=== PATIENT | female | born 1990 | race Caucasian/White ===

== ENCOUNTER → 2022-03-13 14:16 | Outpatient (BNVA) | payer OTHER, BC, SELFPAY | PROVIDERS: PCP Emergency Medicine Emergency Medical Services; Visit Provider Nurse Practitioner Family | DX: G44.85 Primary stabbing headache (principal); G43.109 Migraine with aura, not intractable, without status migrainosus; G47.19 Other hypersomnia; R06.83 Snoring; G47.9 Sleep disorder, unspecified; F32.A Depression, unspecified; Z86.69 Personal history of other diseases of the nervous system and sense organs | CPT/HCPCS: 99202 ==

== ENCOUNTER → 2022-03-29 08:56 | Outpatient (REF) | payer BC, OTHER, SELFPAY | LOC: HO.SL 08:56 | PROVIDERS: Visit Provider Nurse Practitioner Family | DX: G47.19 Other hypersomnia (principal); G47.9 Sleep disorder, unspecified; R06.83 Snoring | CPT/HCPCS: 95806 ==

== ENCOUNTER → 2022-08-11 14:27 | Outpatient (BNVA) | payer BC, OTHER, SELFPAY | PROVIDERS: PCP Emergency Medicine Emergency Medical Services; Visit Provider Nurse Practitioner Family ==

== ENCOUNTER 2023-05-14 15:43 | Outpatient (AMB) | payer BC, SELFPAY ==
[2023-05-14 15:47] VITALS: PULSE 81; O2SAT 96; BMI 32.9
--- NOTE | 2023-05-14 15:47 | A.OFFVIS_ITS ---
Intake Vital Signs 05/14/23 15:47 Height 5 ft 1 in Weight 174 lb BMI 32.9 Pulse 81 Pulse Source Pulse Oximeter Pulse Oximetry (%) 96 Oxygen Delivery Method Room Air Intake Visit Reasons: 6 mo f/u for headaches-LVM Intake Note: Patient presents for 6 month follow up. no issues or concerns Allergies Seasonal Allergies Allergy (Mild, Verified 05/14/23 15:50) Runny Nose Medication List - Last Reconciled 05/14/23 by ANDRE Veloz albuterol sulfate 90 mcg/actuation 2 puffs inhalation Q4-6H PRN ayccfiiwzm-afmpidgdntsjg-txne 50-325-40 mg 1 cap PO Q4H PRN magnesium oxide 400 mg PO BEDTIME 30 days riboflavin (vitamin B2) 400 mg PO DAILY 30 days sumatriptan succinate 50 - 100 mg orally at onset of headache, may repeat in 2 hrs PRN; max 2 tabs per day or 4 tabs/week (may take with Ibuprofen) 30 days HPI HPI Comments History of Present Illness Details 33-yr-old female presents for f/u visit. Pt denies any significant interval medical changes. Pt has not been having many migraine attacks- last migraine was a dull migraine in her eyes which lasted 3 days. Does have increased migraines that start on the 1st day of her menses. This is a/w increased nausea. She does have regular headaches as well. No recent stabbing HAs. She stopped Riboflavn. Using Mag prn. Not using Sumatriptan often. [facility] Medical History Asthma GERD (gastroesophageal reflux disease) Surgical History History of brain surgery Hx of tonsillectomy Family History Mother Hypercholesteremia Rheumatoid arthritis Diabetes Pseudotumor cerebri Asthma Maternal Grandmother Myocardial infarction Maternal Grandfather Myocardial infarction Paternal Grandmother Myocardial infarction Sister Pseudotumor cerebri Brother Asthma Social History Alcohol intake: current Alcohol intake frequency: a few times a month Alcohol type: wine Patient Tobacco Use Status: Never used Tobacco Review of Systems Const All systems reviewed & are unremarkable except as noted in HPI and below Physical Exam Vital Signs: Last Vital Signs Pulse 81 05/14/23 15:47 Pulse Ox 96 05/14/23 15:47 Oxygen Delivery Method Room Air 05/14/23 15:47 BMI result Body Mass Index 32.9 Const General: cooperative and no acute distress Orientation/consciousness: patient oriented x3 HEENT Head: Yes normocephalic Resp Effort & Inspection: normal respiratory effort and able to speak in complete sentences Neuro General: patient oriented x3, gait normal and CN's II-XI intact bilaterally Cognition (Neuro): normal cognition Motor exam (neuro): 5/5 motor strength present throughout Psych Appearance: grossly normal Mental Status: mental status grossly normal Speech and movement: Normal speech and movement present Affect: normal affect Attitude: cooperative Thought process: Normal thought process present Thought content: Normal thought content present Insight: Good insight present (Psych) Judgement: Good judgement present (Psych) Assessment & Plan Assessment & Plan (1) Migraine aura without headache: Code(s): G43.109 - Migraine with aura, not intractable, without status migrainosus (2) Migraine with aura: Code(s): G43.109 - Migraine with aura, not intractable, without status migrainosus (3) Menstrual migraine: Code(s): G43.829 - Menstrual migraine, not intractable, without status migrainosus Plan For overall headache management: Strive to maintain good self-care, including but not limited to maintaining a healthy diet, adequate fluid intake, adequate sleep, and engaging in regular physical activity. Track headaches. ? For acute headache treatment: Continue Sumatriptan 100mg tab- 1/2-1 tab at onset of migraine, may repeat in 2 hrs, may take w/ Ibuprofen or Naproxen. Previous acute migraine medication trials: Fioricet not fully effective Acute migraine medication contraindications: None at this time For menstrual migraine: Start Ibuprofen or Naproxn bid 1-2 days prior to onset of menses, may take Sumatriptan the night before 1st day of expected menses. Zofran 4mg ODT prn ? For headache prevention medication: Discussed that preventative medications should be taken routinely as prescribed for best effect, it may take several weeks for full effect to take effect. May hold Riboflavin 400mg qam Continue Magnesium 400mg qhs prn, increase to qhs if headcahe burden increases. Hold Amitriptyline 10-20mg qhs- not tolerated. Previous migraine prevention medication trials: Amitriptyline 10-20mg qhs- not tolerated. Migraine prevention medication contraindications: BBs d/t dx of asthma. ? f/u in 6 months or sooner prn new/worsening s/s Medications: New ondansetron 4 mg PO Q6H PRN 30 tabs 3RF nausea and vomiting 30 days Refilled sumatriptan succinate 50 - 100 mg orally at onset of headache, may repeat in 2 hrs PRN; max 2 tabs per day or 4 tabs/week (may take with Ibuprofen) 12 tabs 6RF migraine headache 30 days magnesium oxide may hold for loose stools 400 mg PO BEDTIME 30 tabs 6RF 30 days Coding Level of Care Code Est Pt Level 4 (77242) Diagnoses Migraine aura without headache G43.109 Migraine with aura G43.109 Menstrual migraine G43.829
== END 2023-05-14 16:10 | disposition home or self-care (01) ==
PROVIDERS: PCP Emergency Medicine Emergency Medical Services; Visit Provider Nurse Practitioner Family
DX: G43.109 Migraine with aura, not intractable, without status migrainosus (principal); G43.829 Menstrual migraine, not intractable, without status migrainosus
CPT/HCPCS: 99214

== ENCOUNTER → 2023-05-14 15:43 | Outpatient (BNVA) | payer BC, OTHER, SELFPAY | PROVIDERS: PCP Emergency Medicine Emergency Medical Services; Visit Provider Nurse Practitioner Family ==

== ENCOUNTER 2024-06-19 15:22 | Outpatient (AMB) | payer OTHER, SELFPAY ==
[2024-06-19 15:39] VITALS: BP 120/74; PULSE 77; O2SAT 99; BMI 30.7
--- NOTE | 2024-06-19 15:39 | A.OFFVIS_ITS ---
Vital Signs 06/19/24 15:39 Height 5 ft 2 in Weight 168 lb BMI 30.7 BP 120/74 Blood Pressure Location Lt brachial Position Sitting Pulse 77 Pulse Source Pulse Oximeter Pulse Oximetry (%) 99 Oxygen Delivery Method Room Air Intake Visit Reasons: 6 mo f/u Intake Note: Patient presents 6 month follow up Headaches. [employer] Concentration Required: No Accompanied by: Self / Same As Patient Allergies Seasonal Allergies Allergy (Mild, Verified 06/19/24 15:40) Runny Nose HPI Comments Details: 34-yr-old female presents for f/u visit of migraine with aura, menstrual migraine. Pt denies any significant interval medical changes. Pt reports she is primarily only having migraine attacks associated with her menstrual menstrual cycle. The migraine tends to start a day or 2 before her menstrual cycle, and is associated with aura and nausea. Occasionally she may have migraine visual aura without headache. Has random daily less severe very brief stabbing/zapping-type head pains which can reoccur over 15 minutes. Not sure, but feels like this may have been daily. She using Riboflavn prn. Using Mag prn. She would like to start using her supplements more regularly. Not using Sumatriptan often. Does have a migraine cooling cap, which he finds helpful. Baseline migraine with aura characteristics: Aura: Seeing flashes of light or weighs or visual distortion. Numbness in tingling usually in hands but has been in feet or even left jaw if more severe Headache characteristics: Severe, Bilateral eye throbbing pain, often left sided. Associated symptoms: Photophobia, phonophobia, osmophobia, anorexia, N/V, slurred speech, red eyes, brain fog, dizziness described as orthostatic lightheadedness- feels like tunnel vision, activity intolerance, allodynia. Postdrome: Fatigue, hangover effect. [facility] Medical History Asthma GERD (gastroesophageal reflux disease) Surgical History History of brain surgery Hx of tonsillectomy Family History Mother Hypercholesteremia Rheumatoid arthritis Diabetes Pseudotumor cerebri Asthma Maternal Grandmother Myocardial infarction Maternal Grandfather Myocardial infarction Paternal Grandmother Myocardial infarction Sister Pseudotumor cerebri Brother Asthma Social History Alcohol intake: current Alcohol intake frequency: a few times a month Alcohol type: wine Patient Tobacco Use Status: Never used Tobacco Physical Exam Vital Signs: Last Vital Signs Pulse 77 06/19/24 15:39 BP 120/74 06/19/24 15:39 Pulse Ox 99 06/19/24 15:39 Oxygen Delivery Method Room Air 06/19/24 15:39 BMI result Body Mass Index 30.7 Const General: cooperative and no acute distress Orientation/consciousness: patient oriented x3 HEENT Head: Yes normocephalic Resp Effort & Inspection: normal respiratory effort and able to speak in complete sentences Neuro General: patient oriented x3, gait normal and CN's II-XI intact bilaterally Cognition (Neuro): normal cognition Motor exam (neuro): 5/5 motor strength present throughout Psych Appearance: grossly normal Mental Status: mental status grossly normal Speech and movement: Normal speech and movement present Affect: normal affect Attitude: cooperative Thought process: Normal thought process present Thought content: Normal thought content present Insight: Good insight present (Psych) Judgement: Good judgement present (Psych) Assessment & Plan Assessment & Plan (1) Migraine aura without headache: Code(s): G43.109 - Migraine with aura, not intractable, without status migrainosus Category: Medical (2) Migraine with aura: Code(s): G43.109 - Migraine with aura, not intractable, without status migrainosus Category: Medical (3) Menstrual migraine: Code(s): G43.829 - Menstrual migraine, not intractable, without status migrainosus Category: Medical (4) Stabbing headache: Comment: Holocranial ice-pick stabbing headache, brief, repeated attacks over 20 minutes, occurs almost daily. Code(s): G44.85 - Primary stabbing headache Category: Medical Plan For overall headache management: Strive to maintain good self-care, including but not limited to maintaining a healthy diet, adequate fluid intake, adequate sleep, and engaging in regular physical activity. Continue GreenLight therapy as needed. Information shared on neuromodulation devices such as cephaly or head a term- eTNS devices. Track headaches. For stabbing headache: Continue to monitor. If worsens, could consider trial of melatonin or indomethacin. ? For acute headache treatment: Migraine cooling cap as needed. Continue Sumatriptan 100mg tab- 1/2-1 tab at onset of migraine, may repeat in 2 hrs, may take w/ Ibuprofen or Naproxen. Previous acute migraine medication trials: Fioricet not fully effective Acute migraine medication contraindications: None at this time For menstrual migraine: Trial taking 1 cup of edemame a day x's 7 days-starting at onset of menstrual migraine. Start Ibuprofen or Naproxn bid 1-2 days prior to onset of menses, may take Sumatriptan the night before 1st day of expected menses. Zofran 4mg ODT prn ? For headache prevention medication: Resume daily use of Riboflavin 400mg qam Resume nightly use of Magnesium 400mg qhs prn Previous migraine prevention medication trials: Amitriptyline 10-20mg qhs- not tolerated. Migraine prevention medication contraindications: BBs d/t dx of asthma. ? f/u in 6 months or sooner prn new/worsening s/s Medications: Changed From magnesium oxide may hold for loose stools 400 mg PO BEDTIME 30 days 30 tabs 6RF To magnesium oxide may hold for loose stools 400 mg PO BEDTIME 90 days 90 tabs 3RF From riboflavin (vitamin B2) 400 mg PO DAILY 30 days 30 tabs 6RF To riboflavin (vitamin B2) 400 mg PO DAILY 90 days 90 tabs 3RF Refilled sumatriptan succinate (0.5 - 1 x 100 mg) 50 - 100 mg orally at onset of headache, may repeat in 2 hrs PRN; max 2 tabs per day or 4 tabs/week (may take with Ibuprofen) 30 days 12 tabs 6RF migraine headache ondansetron 4 mg PO Q6H 30 days PRN 30 tabs 6RF nausea and vomiting Scribe Plan - Not visible on output: Reviewed possible medication side effects, including but not limited to d rowsiness, dizziness. Coding Level of Care Code Est Pt Level 4 (85862) Diagnoses Migraine aura without headache G43.109 Migraine with aura G43.109 Menstrual migraine G43.829 Stabbing headache G44.85
--- OUTSIDE RECORDS SUMMARY | 2024-06-19 18:03 | XMS_ITS | Clinical Summary ---
Author Organization Patient Business Ser [facility] Address [address] [place] [address] Care Team Providers Care Pharmacovigilance Scientist Name Role Phone Shaneka Jeffrey MD Primary Care Pr ovider Allergies Active Allergy Reactions Criticality Noted Date Comments Other 08/08/2021 Seasonal Allergies Watery eye's , runny nose Medications budesonide (PULMICORT) 90 mcg/actuation inhalerIndication s:Mild intermittent asthma without complication Inhale 1 puff by mouth 2 (two) times a day. Rinse mouth with water after use to reduce aftertaste and incidence of candidiasis. Do not swallow. 1 each 1 5 Active omeprazole (PriLOSEC) [address] capsuleIndication s:Gastroesophagea l reflux disease without esophagitis Take 1 capsule (20 mg total) by mouth 1 (one) time each day. Do not crush or chew. 90 each 1 5 10/05/19 25 Active albuterol HFA (PROAIR HFA ; PROVENTIL HFA ; VENTOLIN HFA) 90 mcg/actuation inhalerIndication s:Mild intermittent asthma without complication Inhale 1 puff by mouth every 6 (six) hours if needed for wheezing. 18 g 1 5 Active Active Problems Problem Noted Date Diagnosed Date Mixed hyperlipidemia 04/07/2024 Assessment & Plan (04/07/2024 4:55 PM EST): She has a history of elevated LDL. Will update labs Orders: Lipid panel with reflex to direct LDL; Future Hemoglobin A1c; Future Gastroesophageal reflux disease 04/02/2023 Assessment & Plan (04/07/2024 4:55 PM EST): She is having symptoms. Advised to start using the omeprazole Orders: omeprazole (PriLOSEC) [address] capsule; Take 1 capsule (20 mg total) by mouth 1 (one) time each day. Do not crush or chew. Lactose intolerance 04/02/2023 Chiari I malformation ([facility] V24, [facility] V28) 06/07/2020 Assessment & Plan (04/07/2024 4:55 PM EST): Continue follow-up with [facility]. Has upcoming appointment. Obesity (BMI 30.0-34.9) 09/02/2018 Assessment & Plan (04/07/2024 4:55 PM EST): She will continue with weight loss efforts. See HPI. Will update labs Orders: CBC and differential; Future Comprehensive metabolic panel; Future Lipid panel with reflex to direct LDL; Future Hemoglobin A1c; Future Mild intermittent asthma 04/03/2018 Overview (12/18/2023): Childhood, with flares occ as adult Assessment & Plan (04/07/2024 4:55 PM EST): Well-controlled off the medications. Refills are provided for her to initiate medications as needed Orders: budesonide (PULMICORT) 90 mcg/actuation inhaler; Inhale 1 puff by mouth 2 (two) times a day. Rinse mouth with water after use to reduce aftertaste and incidence of candidiasis. Do not swallow. albuterol HFA (PROAIR HFA ; PROVENTIL HFA ; VENTOLIN HFA) 90 mcg/actuation inhaler; Inhale 1 puff by mouth every 6 (six) hours if needed for wheezing. Anxiety and depression 10/04/2011 Assessment & Plan (04/07/2024 4:55 PM EST): Well-controlled. Insomnia 10/04/2011 Resolved Problems Problem Noted Date Diagnosed Date Resolved Date Generalized anxiety disorder with panic attacks 04/02/2023 04/07/2024 Encounters Date Type Department Care Team Description 04/07/2024 3:30 PM EST Office Visit Adult Medicine [address] [phone] Shaneka Jeffrey MD Annual physical exam (Primary Dx); Anxiety and depression; Gastroesophageal reflux disease without esophagitis; Chiari I malformation (CMS/HCC V24, CMS/HCC V28); Mild intermittent asthma without complication; Obesity (BMI 30.0-34.9); Elevated LDL cholesterol level 03/25/2024 9:41 AM EST - 03/25/2024 11:59 PM EST Hospital Encounter Radiology [address] [phone] Breast lump Discharge Disposition: Home or Self Care 03/25/2024 9:41 AM EST - 03/25/2024 11:59 PM EST Hospital Encounter Radiology [facility] - [address] [phone] Mass of upper outer quadrant of left breast Discharge Disposition: Home or Self Care from Last 3 Months Immunizations Name Administration Dates Next Due DTaP (Infanrix) 6wks to less than 7yo ,01/03/1993,06/07/1992,04/01,1989 [id number] (Pentacel) 2mo to less than 5yo 06/07/1992 H1N1 Inj Preservative Free 05/24/2009 HPV, Quadrivalent 10/08/2007 Hepatitis B (Vkghjfj-P-Arboy , Recombivax HB-Adult) 19yo and older 11/19/1998,08/24/1997,07/24/1997 IPV Inactivated polio (Ipol) 6wks and older 11/08/1994,06/07/1992,06/04/1990,05/29 Influenza Quadravalent, MDCK , 0.5ml, preservative free (Flucelvax) 6mo and older 03/09/2020 Influenza Quadravalent, MDCK , 0.5ml, with preservative (Flucelvax) 6mo and older 02/05/2017 Influenza trivalent, 0.5mL, preservative free (Fluarix; FluLaval; Fluzone) ages 6mo and older (Afluria) 3 years and older 12/10/2012,12/23/2009,02/12/2001 MMR, measles mumps and rubel la Live (Priorix; M-M-R II) 12mo and older 09/07/1994,06/07/1992 PPD Test 10/04/2011 CarWoo! SARS-CoV-2 COVID-19, mRNA, LNP-S, preservative free 06/06/2020,05/16/2020 Pneumococcal polysaccharide 23 valent (Pneumovax 23) 2yo and older 03/09/2020 Td Tetanus diptheria (Tdvax) 7yo and older 02/12/2001 Tdap Tetanus diptheria acell ular pertussis (Boostrix; Adacel) 7yo and older 04/02/2023,09/10/2012,11/04/2008 Varicella live (Varivax) 12m o and older 07/24/1997 Surgical History Surgery Date Site/Laterality Comments TONSILLECTOMY 02/03/2008 PROCEDURE: HISTORICAL TONSILLECTOMY SECTION PROCEDURE: [place] DELIVERY ONLY OTHER SURGICAL HISTORY 11/2019 PROCEDURE: ELECTIVE SURGERY; COMMENT: for chiari malformation Medical History Medical History Date Comments Depression DX:Depression Mild intermittent asthma 04/03/2018 DX:Mild intermittent asthma; COMMENT: Childhood Obesity (BMI 30.0-34.9) 09/02/2018 DX:Obesi ty (BMI 30.0-34.9) Gastroesophageal reflux disease 04/02/2023 DX:Gastroesophageal reflux disease Generalized anxiety disorder with panic attacks 04/02/2023 Family History Medical History Relation Name Comments No Known Problems Brother No Known Problems Father Heart attack Maternal Grandfather Heart attack Maternal Grandmother catarac t Diabetes Mother Hyperlipidemia Mother rheumatoid ar thritis Other: Other Mother's side 1 anxiety, dep ression, bipolar Depression Mother's side 2 No Known Problems Paternal Grandfather Heart attack Paternal Grandmother Other: anxiety Sister 1 Other: anxiety Sister 2 Breast cancer Neg Hx Colon cancer Neg Hx Ovarian cancer Neg Hx Uterine cancer Neg Hx Relation Name Status Comments Brother Alive Father Alive Maternal Grandfather Maternal Grandmother Mother Alive Mother's side 1 Mother's side 2 Paternal Grandfather Paternal Grandmother Sister 1 Alive Sister 2 Alive Social History Tobacco Use Types Packs/Day Years Used Date Smoking Tobacco: Never Smokeless Tobacco: Never Tobacco Cessation:Counseling Given: Not Answered Alcohol Use Standard Drinks/Week Comments Yes 0 (1 standard drink = 0.6 oz pur e alcohol) social alcohol use Housing Instability Answer Date Recorde d Are you worried that in the next 2 months you may not have stable housing? No 03/31/2024 Food Access & Nutrition Answer Date Rec orded Do you have access to a vari ety of food including fruits and vegetables? No 03/31/2024 Access to Healthcare Answer Date Record ed Within the last 3 months, irina carr many times did you visit the emergency department for your medical care? 0 03/18/2024 Health Literacy Answer Date Recorded How often do you need to hav e someone help you when you read instructions, pamphlets, or other written material from your doctor or pharmacy? Never 03/31/2024 Caregiver: How often do you need to have someone help you when you read instructions, pamphlets, or other written material from your doctor or pharmacy? Not on file 03/31/2024 Financial Risk Answer Date Recorded How hard is it for you to pa y for the very basics like food, housing, medical care, and air conditioning / heating? Not very hard 03/31/2024 Transportation Answer Date Recorded Has the lack of transportati on kept you from meetings, work, or from getting things needed for daily living? No Has the lack of transportati on kept you from medical appointments or from getting medications? No 03/31/2024 Social Isolation Answer Date Recorded How often do you feel lonely or isolated from th ose around you? Never 03/31/2024 Food Risk Answer Date Recorded Within the past 12 months we worried whether our food would run out before we got money to buy more. Never true 03/31/2024 Within the past 12 months th e food we bought just didn't last and we didn't have money to get more. Never true 03/31/2024 Dependent Care Answer Date Recorded Do you need help finding or paying for care for your loved ones. For example, summer child caregiver or elderly care for an older adult? No 03/31/2024 Education Answer Date Recorded Do you think completing more education or training, like finishing a GED, going to college, or learning a trade, would be helpful for you? Patient declined 03/31/2024 Employment and Income Answer Date Recor ded During the last four weeks, have you been actively looking for work? No 03/31/2024 Living Situation Answer Date Recorded What is your living situation? 0 03/31/2024 Comments No Sex and Gender Information Value Date Recorded Sex Assigned at Not on file Legal Sex Female 8:51 AM EDT Gender Identity Not on file Sexual Orientation Not on file Obstetrics History Para Term AB IAB SAB Ectopic Multiple Livin g Live Births 2 2 2 2 2 Date Outcome GA Total Labor Labor/2nd/3rd Weight Sex Type Anes PTL Josy A1 A5 Name Clin 2009 Term 40w 0d 3025 g (106.7 oz) F CS-Un spec Livin g [address] Marinelli Delivery Location:[facility] Comments:Failure to pr ogress; potential for jeopardy. 2012 Term 40w 1d 8h 31m/ 3175 g (112 oz) M Epidur al Livin g 8 9 KEV Aparicio Delivery Location:[facility] Filed Vital Signs Vital Sign Reading Time Taken Comments Blood Pressure 109/84 04/07/2024 4:05 PM EST Pulse 78 04/07/2024 4:05 PM EST Temperature 36.6 ??C (97.9 ??F) 04/07/2024 4:05 PM ES T Respiratory Rate 18 04/07/2024 4:05 PM EST Oxygen Saturation - - Inhaled Oxygen Concentration - - Weight 77.1 kg (170 lb) 04/07/2024 4:05 PM EST Height 157.5 cm (5' 2 ) 04/07/2024 4:05 PM EST Body Mass Index 31.09 04/07/2024 4:05 PM EST Plan of Treatment Health Maintenance Due Date Last Done Comments HPV Vaccines (2 - 3-dose series) 11/05/2007 10/08/2007 Social Influencers of Health Screening 03/31/2025 03/31/2024 Depression Screening 04/07/2025 04/07/2024, 08/01/19 Cervical Cancer Screening: HPV 05/12/2026 05/12/2021 Cholesterol Screening (Lipid Panel) 04/21/2029 04/21/2024, 04/03/2023 DTaP,Tdap,and Td Vaccines (10 - Td or Tdap) 04/02/2033 04/02/2023, 09/10/2012, 11/04/2008, Additional history exists HIB Vaccines Completed 06/07/1992, 06/07/1992 MMR Vaccines Completed 09/07/1994, 07/1992, 1990 IPV Vaccines Completed 11/08/1994, 07/1992, 06/07/1992, Additional history exists Varicella Vaccines Aged Out 07/24/1997 No longer eligible based on patient's age to complete this topic Hepatitis B Vaccines Completed 11/19/1998, 08/24/1997, 07/24/1997, Additional history exists HIV Screening Completed 06/21/2015 Hepatitis C Screening Completed 06/21/2015 Influenza Vaccine Discontinued 03/09/2020, , 12/10/2012, Additional history exists Pneumococcal Vaccine: Pediatrics (0 to 5 Years) and At-Risk Patients (6 to 64 Years) Discontinued 03/09/2020 COVID-19 Vaccine Discontinued 06/06/2020, 05/16/2020 Hepatitis A Vaccines Aged Out No long er eligible based on patient's age to complete this topic Meningococcal ACWY Vaccine Aged Out N o longer eligible based on patient's age to complete this topic Meningococcal B Vaccine Aged Out No l onger eligible based on patient's age to complete this topic RSV Immunization Patients Under 20 months Aged Out No longer eligible based on patient's age to complete this topic Procedures Procedure Name Priority Date/Time Associated Diagnosis Comments CBC WITH AUTO DIFFERENTIAL Routine 04/21/2024 11:57 AM EST Obesity (BMI 30.0-34.9) CBC AND DIFFERENTIAL Routine 04/21/2024 11:57 AM EST Obesity (BMI 30.0-34.9) COMPREHENSIVE METABOLIC PANEL Routine 04/21/2024 11:57 AM EST Obesity (BMI 30.0-34.9) LIPID PANEL WITH REFLEX TO DIRECT LDL Routine 04/21/2024 11:57 AM EST Obesity (BMI 30.0-34.9) Elevated LDL cholesterol level HEMOGLOBIN A1C Routine 04/21/2024 11:57 AM EST Obesity (BMI 30.0-34.9) Elevated LDL cholesterol level US BREAST LIMITED LEFT Routine 10:26 AM EST Breast lump MG MAMMO DIGITAL DIAGNOSTIC LEFT Routine 03/25/2024 10:19 AM EST Mass of upper outer quadrant of left breast DEPRESSION SCREENING Routine 08/01/2023 HPV Routine 05/12/2021 HEPATITIS C SCREENING Routine 06/21/2015 HIV SCREENING Routine 06/21/2015 from Last 3 Months or Most Recently Relevant to Health Maintenance Results * (ABNORMAL) Lipid panel with reflex to direct LDL (04/21/2024 11:57 AM EST) Cholesterol 204(H) 0 - 200 mg/dL LAB CHEMISTRY METHOD 04/21/2024 2:42 PM [facility] Triglycerides 53 0 - 150 mg/dL LAB CHEMISTRY METHOD 04/21/2024 2:42 PM [facility] HDL 75 >=40 mg/dL LAB CHEMISTRY METHOD 04/21/2024 2:42 PM [facility] LDL Calculated 118(H) 0 - 100 mg/dL LAB CHEMISTRY METHOD 04/21/2024 2:42 PM [facility] VLDL Cholesterol Wyatt 10.6 mg/dL LAB CHEMISTRY METHOD 04/21/2024 2:42 PM [facility] Non HDL Chol. (LDL+VLDL) 129 <145 mg/dL LAB CHEMISTRY METHOD 04/21/2024 2:42 PM [facility] Chol/HDL Ratio 2.7 0.0 - 4.4 LAB CHEMISTRY METHOD 04/21/2024 2:42 PM [facility] Blood Venous blood specimen / Unknown Venipuncture / Unknown 04/21/2024 11:57 AM EST 04/21/2024 11:57 AM EST Shaneka Jeffrey MD LAB BLOOD ORDERA BLES Final Result [facility] [address] [place] [address], * (ABNORMAL) CBC auto differential (04/21/2024 11:57 AM EST) WBC 4.1(L) 4.8 - 10.8 K/mcL LAB HEMETOLOGY METHOD 04/21/2024 2:01 PM [facility] RBC 4.80 3.80 - 4.80 M/mcL LAB HEMETOLOGY METHOD 04/21/2024 2:01 PM [facility] Hemoglobin 12.8 11.5 - 16.0 g/dL LAB HEMETOLOGY METHOD 04/21/2024 2:01 PM [facility] Hematocrit 39.8 35.0 - 47.0 % LAB HEMETOLOGY METHOD 04/21/2024 2:01 PM [facility] MCV 83.1 79.0 - 98.0 FL LAB HEMETOLOGY METHOD 04/21/2024 2:01 PM [facility] MCH 26.7(L) 27.0 - 32.0 pcg LAB HEMETOLOGY METHOD 04/21/2024 2:01 PM [facility] MCHC 32.2 32.0 - 37.0 g/dL LAB HEMETOLOGY METHOD 04/21/2024 2:01 PM [facility] RDW 13.0 11.0 - 15.0 % LAB HEMETOLOGY METHOD 04/21/2024 2:01 PM [facility] Platelets 274 130 - 400 K/mcL LAB HEMETOLOGY METHOD 04/21/2024 2:01 PM [facility] MPV 9.0 7.0 - 11.0 FL LAB HEMETOLOGY METHOD 04/21/2024 2:01 PM [facility] NRBC 0.0 <1.0 % LAB HEMETOLOGY METHOD 04/21/2024 2:01 PM [facility] NRBC Absolute 0.00 <0.10 K/mcL LAB HEMETOLOGY METHOD 04/21/2024 2:01 PM [facility] Neutrophils Relative 61.0 % LAB HEMETOLOGY METHOD 04/21/2024 2:01 PM [facility] Lymphocytes Relative 28.3 % LAB HEMETOLOGY METHOD 04/21/2024 2:01 PM [facility] Monocytes Relative 7.6 % LAB HEMETOLOGY METHOD 04/21/2024 2:01 PM [facility] Eosinophils Relative 2.2 % LAB HEMETOLOGY METHOD 04/21/2024 2:01 PM [facility] Basophils Relative 0.7 % LAB HEMETOLOGY METHOD 04/21/2024 2:01 PM [facility] Immature Granulocytes Relative 0.2 % LAB HEMETOLOGY METHOD 04/21/2024 2:01 PM [facility] Neutrophils Absolute 2.47 1.50 - 7.00 K/mcL LAB HEMETOLOGY METHOD 04/21/2024 2:01 PM [facility] Lymphocytes Absolute 1.15 1.00 - 5.00 K/mcL LAB HEMETOLOGY METHOD 04/21/2024 2:01 PM [facility] Monocytes Absolute 0.31 0.20 - 1.00 K/mcL LAB HEMETOLOGY METHOD 04/21/2024 2:01 PM EST [facility] Eosinophils Absolute 0.09 0.00 - 0.50 K/[facility] LAB HEMETOLOGY METHOD 04/21/2024 2:01 PM EST [facility] Basophils Absolute 0.03 0.00 - 0.20 K/[facility] HEMETOLOGY METHOD 04/21/2024 2:01 PM EST [facility] Immature Granulocytes Absolute 0.01 0.00 - 0.03 K/[facility] LAB HEMETOLOGY METHOD 04/21/2024 2:01 PM [facility] Blood Venous blood specimen / Unknown Venipuncture / Unknown 04/21/2024 11:57 AM EST 04/21/2024 11:57 AM EST Shaneka Jeffrey MD LAB BLOOD ORDERA BLES Final Result [facility] [address] [place] [address], * Hemoglobin A1c (04/21/2024 11:57 AM EST) Hemoglobin A1C 5.3 <6.5 % LAB CHEMISTRY METHOD 04/21/2024 9:18 PM EST [facility] Mean Bld Glu Estim. 105 mg/dL LAB CHEMISTRY METHOD 04/21/2024 9:18 PM EST [facility] Blood Venous blood specimen / Unknown Venipuncture / Unknown 04/21/2024 11:57 AM EST 04/21/2024 11:57 AM EST Shaneka Jeffrey MD LAB BLOOD ORDERA BLES Final Result Performing Organization Address City/[facility]/ZIP Co de Phone Number [facility] [address] [place] [address], [place] [phone] * Comprehensive metabolic panel (04/21/2024 11:57 AM EST) [facility] Signature Sodium 138 133 - 145 mmol/L LAB CHEMISTRY METHOD 04/21/2024 2:42 PM [facility] Potassium 4.2 3.5 - 5.5 mmol/L LAB CHEMISTRY METHOD 04/21/2024 2:42 PM [facility] Chloride 106 96 - 110 mmol/L LAB CHEMISTRY METHOD 04/21/2024 2:42 PM [facility] CO2 26 21 - 32 mmol/L LAB CHEMISTRY METHOD 04/21/2024 2:42 PM [facility] Anion Gap 6 3 - 11 LAB CHEMISTRY METHOD 04/21/2024 2:42 PM [facility] Glucose 90 70 - 100 mg/dL LAB CHEMISTRY METHOD 04/21/2024 2:42 PM [facility] BUN 14 5 - 25 mg/dL LAB CHEMISTRY METHOD 04/21/2024 2:42 PM [facility] Creatinine 0.72 0.50 - 1.10 mg/dL LAB CHEMISTRY METHOD 04/21/2024 2:42 PM [facility] eGFR 112 >=60 mL/min/1. 73m2 LAB CHEMISTRY METHOD 04/21/2024 2:42 PM [facility] Comment:Calculation based on the??Chronic Kidney Disease Epidemiology Collaboration (CKD-EPI) equation refit??without adjustment for race. BUN/Creatinine Ratio 19.4 LAB CHEMISTRY METHOD 04/21/2024 2:42 PM [facility] Calcium 9.1 8.5 - 10.5 mg/dL LAB CHEMISTRY METHOD 04/21/2024 2:42 PM [facility] AST (SGOT) 16 10 - 42 unit/L LAB CHEMISTRY METHOD 04/21/2024 2:42 PM [facility] ALT (SGPT) 14 10 - 60 unit/L LAB CHEMISTRY METHOD 04/21/2024 2:42 PM EST [facility] Alkaline Phosphatase 52 42 - 121 unit/L LAB CHEMISTRY METHOD 04/21/2024 2:42 PM EST [facility] Total Protein 6.7 6.0 - 8.0 g/dL LAB CHEMISTRY METHOD 04/21/2024 2:42 PM EST [facility] Albumin 3.8 3.2 - 5.0 g/dL LAB CHEMISTRY METHOD 04/21/2024 2:42 PM EST [facility] Total Bilirubin 0.4 0.0 - 1.4 mg/dL LAB CHEMISTRY METHOD 04/21/2024 2:42 PM EST [facility] Blood Venous blood specimen / Unknown Venipuncture / Unknown 04/21/2024 11:57 AM EST 04/21/2024 11:57 AM EST Shaneka Jeffrey MD LAB BLOOD ORDERA BLES Final Result [facility] [address] [place] [address], * US Breast Limited Left (03/25/2024 10:26 AM EST) Anatomical Region Laterality Modality Breast Left Ultrasound 03/25/2024 10:3 7 AM EST Impressions 03/25/2024 10:40 AM EST 1. No mammographic evidence of malignancy 2. Heterogeneously dense ?? Findings and recommendations were conveyed to the patient. ? BI-RADS CATEGORY: 2 - BENIGN RECOMMENDATION: Screening bilateral mammogram recommended at age 40 unless clinically indicated earlier. Screening bilateral mammogram recommended at age 40 unless clinically indicated earlier. Mammo Location: [facility], [address] [place] [address], [id number], . -------- FINAL REPORT -------- Dictated By: Andrew Manley Dictated Date: 03/25/2024 10:37 ET Assigned Physician: Andrew Manley Reviewed and Electronically Signed By: Andrew Manley Signed Date: 03/25/2024 10:40 ET Workstation ID: [id number] Transcribed By: Self Edit Transcribed Date: 03/25/2024 10:37 ET Narrative 03/25/2024 10:40 AM EST BILATERALDIGITAL DIAGNOSTIC 3D MAMMOGRAPHY HISTORY: Workup for left breast upper outer palpable abnormality in a 33-year-old female COMPARISON: Baseline Technique: Bilateral CC and MLO full field views 3-D, full-field ML left breast, left breast CC and MLO spot compression FINDINGS: Left: No focal abnormality in area of clinical concern. ??No suspicious masses, microcalcifications or areas of architectural distortion Right: No suspicious masses, microcalcifications or areas of architectural distortion BREAST DENSITY: C - The breasts are heterogeneously dense which may obscure small masses. EXAM: LEFT ??BREAST TARGETED ULTRASOUND EVALUATION HISTORY: ??Workup for upper outer palpable abnormality TECHNIQUE: Ultrasonographic examination is performed using a ??linear array transducer. Targeted left ??breast ultrasound from 12:00 to 2:00 to evaluate area of palpable concern. Real-time sonographic scanning was also performed by the radiologist FINDINGS: From 12:00 to 2:00, no sonographic evidence of malignancy or other focal abnormalities were identified at the left ??breast in area of palpable concern Procedure Note Andrew Manley MD - 03/25/2024 BILATERALDIGITAL DIAGNOSTIC 3D MAMMOGRAPHY HISTORY: Workup for left breast upper outer palpable abnormality in [id number] female COMPARISON: Baseline Technique: Bilateral CC and MLO full field views 3-D, full-field ML leftbreast, left breast CC and MLO spot compression FINDINGS: Left: No focal abnormality in area of clinical concern. No suspicious masses,microcalcifications or areas of architectural distortion Right: No suspicious masses, microcalcifications or areas of architecturaldistortion BREAST DENSITY: C - The breasts are heterogeneously dense which mayobscure small masses. EXAM: LEFT BREAST TARGETED ULTRASOUND EVALUATION HISTORY: Workup for upper outer palpable abnormality TECHNIQUE: Ultrasonographic examination is performed using a linear arraytransducer. Targeted left breast ultrasound from 12:00 to 2:00 toevaluate area of palpable concern. Real-time sonographic scanning was alsoperformed by the radiologist FINDINGS: From 12:00 to 2:00, no sonographic evidence of malignancy or other focalabnormalities were identified at the left breast in area of palpableconcern IMPRESSION: 1. No mammographic evidence of malignancy 2. Heterogeneously dense Findings and recommendations were conveyed to the patient. BI-RADS CATEGORY: 2 - BENIGN RECOMMENDATION: Screening bilateral mammogram recommended at age 40 unless clinicallyindicated earlier. Screening bilateral mammogram recommended at age 40unless clinically indicated earlier. Mammo Location: [facility], [address] [place] [address], [id number], . -------- FINAL REPORT -------- Dictated By: Andrew Manley Dictated Date: 03/25/2024 10:37 ET Assigned Physician: Andrew Manley Reviewed and Electronically Signed By: Andrew Manley Signed Date: 03/25/2024 10:40 ET Workstation ID: [id number] Transcribed By: Self Edit Transcribed Date: 03/25/2024 10:37 ET us Ella Orr CNM IMG US PROCEDURES Final Result * MG Mammo Digital Diagnostic Left (03/25/2024 10:19 AM EST) Anatomical Region Laterality Modality Breast Left Mammography 03/25/2024 10:3 7 AM EST Impressions 03/25/2024 10:40 AM EST 1. No mammographic evidence of malignancy 2. Heterogeneously dense ?? Findings and recommendations were conveyed to the patient. ? BI-RADS CATEGORY: 2 - BENIGN RECOMMENDATION: Screening bilateral mammogram recommended at age 40 unless clinically indicated earlier. Screening bilateral mammogram recommended at age 40 unless clinically indicated earlier. Mammo Location: [facility], [address] [place] [address], [id number], . -------- FINAL REPORT -------- Dictated By: Andrew Manley Dictated Date: 03/25/2024 10:37 ET Assigned Physician: Andrew Manley Reviewed and Electronically Signed By: Andrew Manley Signed Date: 03/25/2024 10:40 ET Workstation ID: [id number] Transcribed By: Self Edit Transcribed Date: 03/25/2024 10:37 ET Narrative 03/25/2024 10:40 AM EST BILATERALDIGITAL DIAGNOSTIC 3D MAMMOGRAPHY HISTORY: Workup for left breast upper outer palpable abnormality in a 33-year-old female COMPARISON: Baseline Technique: Bilateral CC and MLO full field views 3-D, full-field ML left breast, left breast CC and MLO spot compression FINDINGS: Left: No focal abnormality in area of clinical concern. ??No suspicious masses, microcalcifications or areas of architectural distortion Right: No suspicious masses, microcalcifications or areas of architectural distortion BREAST DENSITY: C - The breasts are heterogeneously dense which may obscure small masses. EXAM: LEFT ??BREAST TARGETED ULTRASOUND EVALUATION HISTORY: ??Workup for upper outer palpable abnormality TECHNIQUE: Ultrasonographic examination is performed using a ??linear array transducer. Targeted left ??breast ultrasound from 12:00 to 2:00 to evaluate area of palpable concern. Real-time sonographic scanning was also performed by the radiologist FINDINGS: From 12:00 to 2:00, no sonographic evidence of malignancy or other focal abnormalities were identified at the left ??breast in area of palpable concern Procedure Note Andrew Manley MD - 03/25/2024 BILATERALDIGITAL DIAGNOSTIC 3D MAMMOGRAPHY HISTORY: Workup for left breast upper outer palpable abnormality in [id number] female COMPARISON: Baseline Technique: Bilateral CC and MLO full field views 3-D, full-field ML leftbreast, left breast CC and MLO spot compression FINDINGS: Left: No focal abnormality in area of clinical concern. No suspicious masses,microcalcifications or areas of architectural distortion Right: No suspicious masses, microcalcifications or areas of architecturaldistortion BREAST DENSITY: C - The breasts are heterogeneously dense which mayobscure small masses. EXAM: LEFT BREAST TARGETED ULTRASOUND EVALUATION HISTORY: Workup for upper outer palpable abnormality TECHNIQUE: Ultrasonographic examination is performed using a linear arraytransducer. Targeted left breast ultrasound from 12:00 to 2:00 toevaluate area of palpable concern. Real-time sonographic scanning was alsoperformed by the radiologist FINDINGS: From 12:00 to 2:00, no sonographic evidence of malignancy or other focalabnormalities were identified at the left breast in area of palpableconcern IMPRESSION: 1. No mammographic evidence of malignancy 2. Heterogeneously dense Findings and recommendations were conveyed to the patient. BI-RADS CATEGORY: 2 - BENIGN RECOMMENDATION: Screening bilateral mammogram recommended at age 40 unless clinicallyindicated earlier. Screening bilateral mammogram recommended at age 40unless clinically indicated earlier. Mammo Location: [facility], [address] [place] [address], [id number], . -------- FINAL REPORT -------- Dictated By: Andrew Manley Dictated Date: 03/25/2024 10:37 ET Assigned Physician: Andrew Manley Reviewed and Electronically Signed By: Andrew Manley Signed Date: 03/25/2024 10:40 ET Workstation ID: [id number] Transcribed By: Self Edit Transcribed Date: 03/25/2024 10:37 ET Ella Orr CNM IMG BI PROCEDURES Final Result * Depression Screening (08/01/2023) [facility] Depression Screening Abstracted [facility] Provider HEALTH MAINTENANCE Final Result * Cervical Cancer Screening: HPV (05/12/2021) [facility] Cervical Cancer Screening: HPV Negative, Abstracted Result [facility] Provider HEALTH MAINTENANCE Final Result * HIV Screening (06/21/2015) [facility] HIV Screening Abstracted Result [facility] Provider HEALTH MAINTENANCE Final Result * Hepatitis C Screening (06/21/2015) [facility] Hepatitis C Screening Abstracted Result [facility] Provider HEALTH MAINTENANCE Final Result from Last 3 Months or Most Recently Relevant to Health Maintenance Insurance [facility] Care Teams Pharmacovigilance Scientist Relationship Specialty Start Date End Date Shaneka Jeffrey MD [address] [place] [id number] PCP - General Internal Medicine 01/29/24
--- OUTSIDE RECORDS SUMMARY | 2024-06-19 18:03 | XMS_ITS ---
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 Name Role Phone ANJELICA IRBY Unavailable [phone] Encounters Encounter Location Date Provider Diagnosis [place] [id number] [address] 01/17/2023 ANJELICA IRBY Other obesity due to excess calories E66.09 ; Migraine with aura and without status migrainosus, not intractable G43.109 ; Chiari I malformation G93.5 ; Vitamin D deficiency E55.9 and BMI 31.0-31.9,adult Z68.31 ASSESSMENTS Encounter Date Diagnosis Assessment Notes Treatment Notes Treatment Clinical Notes Section Notes 01/17/2023 Other obesity due to excess calories (ICD-10 - E66.09) Weight Mgt Patient doing well overall. Patient will begin Mounjaro as it is a better drug Backup plan would be compounded semaglutide until she reaches higher dosing and then a prescription will be sent for higher dose Wegovy Patient will continue to follow a health lifestyle with calorie counting. Patient will continue to maintain a healthy amount of exercise to gain muscle and lose weight. Patient's weight loss goals and body composition was discussed. States she has trialed keto diet for 3 years prior, but gained the weight back in 2020. Currently eats carb heavy diet w/ no portion controlling or calorie counting. Not exercising or counting steps due to busy schedule. Discussed GLP-1 options for her, as Phentermine not a good choice due to hx of migraines + anxiety. Pt is aware of mechnism of action + potential side effects. Metabolic workup unremarkable Discussed importance of protein consumption for muscle maintenance as well as probiotics, B12 complex biotin , iron and other nutrients, To help avoid telogen effluvium while on weight loss medications such as GLP-1 We are a board certified obesity and weight management practice Patient has trialed behavioral modification, dietary restrictions and exercise for a minimum of 3 months Patient has been found to be obese with a BMI of (31). Patient has class (1) obesity. Patient was reassured and welcomed to the practice. We discussed that we stress a hollistic medical approach with emphasis on lifestyle modification. Patient was informed that a healthy lifestyle with exercise and good eating habits can help reduce his risk of medical complications. He is explained that obesity increases his risk of diabetes, cardiovascular disease, or organ damage. We spent a lot of time discussing the relationship between food, exercise, sleep, mental health and obesity. Patient was counseled on the importance EATING local, organic food when possible. Patient was educated on clean 15 and dirty dozen. I provided information about reading books called The Food Rules by Otto Leon and Eat Fat Get Lean by Dr Babar Poe. Self education is important in the journey for weight management. Patient was offered diagnostic testing. We want to measure visceral adiposity, advanced body composition, adverse lipids, fatty acid balance, risk for heart disease and atherosclerosis, markers of inflammation and genetic susceptibility. Patient was counseled on weight management and was advised to lose weight using A. Meal Replacement Products Patient was educated on the replacement products called optifast. This is a good way of taking fixed amount of calories. It has been shown in studies to be ineffective weight management tool. This however has to be coupled with lifestyle intervention as well as laboratory data and EKG monitoring. It is impossible to know how a person will tolerate complete meal replacement. The side effects of meal replacement and weight loss could include syncopal attacks, dizziness, gallstones, potential cholecystectomy, possible heart attack and even . The benefits of meal replacement would be potential weight loss but no guarantees can be made. Meal replacement products are not covered by insurance. Once the patient has bought these products we cannot return them B. Lifestyle management which includes several strategies as below 1. Eat a low carbohydrate good fat good protein diet. Eliminate refined carbohydrates from the diet. Continue blood sugar and sugared beverages. Eat local organic when possible. Cook your own meals. Read food labels. None about healthy snacks. Portion control and food with low glycemic index 2. Exercise regularly. Try to get at least 6000 steps a day. Use a predominant to track activity level. Consider using apps like DailyObjects.com, myfitnesspal, lose it, stick as needed for self-monitoring and weight management. Consider group exercises. Consider hiring a personal service workers. Regular exercise is gilmore to sustainable health and prevents as a buffer against weight regain 3. Sleep is most important for healing. Tried to sleep at least 8 hours a night. A good quality sleep needs a sleep ritual with ideal room temperature of around 68. It might help to take a shower and have no electronics in the room and sleep in a very dark room without artificial light. Start her sleep routine and get up early in the morning and go to bed on time 4. Make a social connection. Surround yourself with positive people with positive energy. Connect with friends and family. 5. Get into the habit of meditating and mindfulness while doing everything. 6. Go outside and connect with nature. C. Prescription medications Patient was educated on the use of prescription medications for medical weight loss. This is a growing list and includes phentermine, Topamax,Qsymia, contrave, belviq and saxenda. All prescription medications could have side effects including but not limited to kidney stones, seizure disorder cardiac arrhythmias heart attack pancreatitis etc. etc.. Patient was encouraged to read the prescription insert and have coaching with their pharmacist and make an informed decision about taking medication and know that these medications are being prescribed with good intentions and we do not know how a patient would react to her medication. Sudden medications are FDA approved for weight loss and there is also off label use depending on patient's inability to afford medications in an attempt to lose weight D. Behavioral counseling was done to establish a relationship between food and an mood. Patient was provided information about local counseling and psychiatry and Dr Pollard at [facility]. We would like to cover regular topics and build on low glycemic eating exercise mindful eating, using yoga and meditation along with deep breathing and connecting with friends and family. E. MASS PAT reviewed, Patient's current medications were reviewed and opinion was given on medication that can cause weight gain and can be substituted F. Patient was assessed for risk with obesity including and not limiting to atherosclerosis heart disease stroke kidney disease, restrictive lung disease, irritable bowel syndrome and overall mortality. Risk of developing prediabetes diabetes and metabolic syndrome was discussed G. Therapeutic plan: We have decided to make therapeutic plan which would include choosing wisely on calories restricting portion getting active, tracking weight, getting good quality sleep and working on time management H. Patient will follow up in (4) weeks for weight management Total time spent today was 30 minutes of which greater than 50% was spent on coordinating and counseling Of note, some information is being carried forward from prior records for informational purposes only and is being cited so that efficiency, safety and quality of the patient's care is not compromised This note was prepared using voice recognition software and direct typing Please excuse inadvertent scrap hooker or typing errors, or uncorrected word substitutions Although every attempt has been made by the provider to proofread this document, occasional misspellings and typographical errors may still be present Due to the previous pandemic, and the use of personal protective equipment (PPE) This may decrease voice recognition accuracy Inadvertent scrap hooker errors may occur 01/17/2023 Migraine with aura and without status migrainosus, not intractable (ICD-10 - G43.109) Weight Mgt Patient doing well overall. Patient will begin Mounjaro as it is a better drug Backup plan would be compounded semaglutide until she reaches higher dosing and then a prescription will be sent for higher dose Wegovy Patient will continue to follow a health lifestyle with calorie counting. Patient will continue to maintain a healthy amount of exercise to gain muscle and lose weight. Patient's weight loss goals and body composition was discussed. States she has trialed keto diet for 3 years prior, but gained the weight back in 2019. Currently eats carb heavy diet w/ no portion controlling or calorie counting. Not exercising or counting steps due to busy schedule. Discussed GLP-1 options for her, as Phentermine not a good choice due to hx of migraines + anxiety. Pt is aware of mechnism of action + potential side effects. Metabolic workup unremarkable Discussed importance of protein consumption for muscle maintenance as well as probiotics, B12 complex biotin , iron and other nutrients, To help avoid telogen effluvium while on weight loss medications such as GLP-1 We are a board certified obesity and weight management practice Patient has trialed behavioral modification, dietary restrictions and exercise for a minimum of 3 months Patient has been found to be obese with a BMI of (31). Patient has class (1) obesity. Patient was reassured and welcomed to the practice. We discussed that we stress a hollistic medical approach with emphasis on lifestyle modification. Patient was informed that a healthy lifestyle with exercise and good eating habits can help reduce his risk of medical complications. He is explained that obesity increases his risk of diabetes, cardiovascular disease, or organ damage. We spent a lot of time discussing the relationship between food, exercise, sleep, mental health and obesity. Patient was counseled on the importance EATING local, organic food when possible. Patient was educated on clean 15 and dirty dozen. I provided information about reading books called The Food Rules by Otto Leon and Eat Fat Get Lean by Dr Babar Poe. Self education is important in the journey for weight management. Patient was offered diagnostic testing. We want to measure visceral adiposity, advanced body composition, adverse lipids, fatty acid balance, risk for heart disease and atherosclerosis, markers of inflammation and genetic susceptibility. Patient was counseled on weight management and was advised to lose weight using A. Meal Replacement Products Patient was educated on the replacement products called optifast. This is a good way of taking fixed amount of calories. It has been shown in studies to be ineffective weight management tool. This however has to be coupled with lifestyle intervention as well as laboratory data and EKG monitoring. It is impossible to know how a person will tolerate complete meal replacement. The side effects of meal replacement and weight loss could include syncopal attacks, dizziness, gallstones, potential cholecystectomy, possible heart attack and even . The benefits of meal replacement would be potential weight loss but no guarantees can be made. Meal replacement products are not covered by insurance. Once the patient has bought these products we cannot return them B. Lifestyle management which includes several strategies as below 1. Eat a low carbohydrate good fat good protein diet. Eliminate refined carbohydrates from the diet. Continue blood sugar and sugared beverages. Eat local organic when possible. Cook your own meals. Read food labels. None about healthy snacks. Portion control and food with low glycemic index 2. Exercise regularly. Try to get at least 6000 steps a day. Use a predominant to track activity level. Consider using apps like Daily[employer].com, Sharegatepal, lose it, stick as needed for self-monitoring and weight management. Consider group exercises. Consider hiring a personal service workers. Regular exercise is gilmore to sustainable health and prevents as a buffer against weight regain 3. Sleep is most important for healing. Tried to sleep at least 8 hours a night. A good quality sleep needs a sleep ritual with ideal room temperature of around 68. It might help to take a shower and have no electronics in the room and sleep in a very dark room without artificial light. Start her sleep routine and get up early in the morning and go to bed on time 4. Make a social connection. Surround yourself with positive people with positive energy. Connect with friends and family. 5. Get into the habit of meditating and mindfulness while doing everything. 6. Go outside and connect with nature. C. Prescription medications Patient was educated on the use of prescription medications for medical weight loss. This is a growing list and includes phentermine, Topamax,Qsymia, contrave, belviq and saxenda. All prescription medications could have side effects including but not limited to kidney stones, seizure disorder cardiac arrhythmias heart attack pancreatitis etc. etc.. Patient was encouraged to read the prescription insert and have coaching with their pharmacist and make an informed decision about taking medication and know that these medications are being prescribed with good intentions and we do not know how a patient would react to her medication. Sudden medications are FDA approved for weight loss and there is also off label use depending on patient's inability to afford medications in an attempt to lose weight D. Behavioral counseling was done to establish a relationship between food and an mood. Patient was provided information about local counseling and psychiatry and Dr Pollard at [facility]. We would like to cover regular topics and build on low glycemic eating exercise mindful eating, using yoga and meditation along with deep breathing and connecting with friends and family. E. MASS PAT reviewed, Patient's current medications were reviewed and opinion was given on medication that can cause weight gain and can be substituted F. Patient was assessed for risk with obesity including and not limiting to atherosclerosis heart disease stroke kidney disease, restrictive lung disease, irritable bowel syndrome and overall mortality. Risk of developing prediabetes diabetes and metabolic syndrome was discussed G. Therapeutic plan: We have decided to make therapeutic plan which would include choosing wisely on calories restricting portion getting active, tracking weight, getting good quality sleep and working on time management H. Patient will follow up in (4) weeks for weight management Total time spent today was 30 minutes of which greater than 50% was spent on coordinating and counseling Of note, some information is being carried forward from prior records for informational purposes only and is being cited so that efficiency, safety and quality of the patient's care is not compromised This note was prepared using voice recognition software and direct typing Please excuse inadvertent scrap hooker or typing errors, or uncorrected word substitutions Although every attempt has been made by the provider to proofread this document, occasional misspellings and typographical errors may still be present Due to the previous pandemic, and the use of personal protective equipment (PPE) This may decrease voice recognition accuracy Inadvertent scrap hooker errors may occur 01/17/2023 Chiari I malformation (ICD-10 - G93.5) Weight Mgt Patient doing well overall. Patient will begin Mounjaro as it is a better drug Backup plan would be compounded semaglutide until she reaches higher dosing and then a prescription will be sent for higher dose Wegovy Patient will continue to follow a health lifestyle with calorie counting. Patient will continue to maintain a healthy amount of exercise to gain muscle and lose weight. Patient's weight loss goals and body composition was discussed. States she has trialed keto diet for 3 years prior, but gained the weight back in 2019. Currently eats carb heavy diet w/ no portion controlling or calorie counting. Not exercising or counting steps due to busy schedule. Discussed GLP-1 options for her, as Phentermine not a good choice due to hx of migraines + anxiety. Pt is aware of mechnism of action + potential side effects. Metabolic workup unremarkable Discussed importance of protein consumption for muscle maintenance as well as probiotics, B12 complex biotin , iron and other nutrients, To help avoid telogen effluvium while on weight loss medications such as GLP-1 We are a board certified obesity and weight management practice Patient has trialed behavioral modification, dietary restrictions and exercise for a minimum of 3 months Patient has been found to be obese with a BMI of (31). Patient has class (1) obesity. Patient was reassured and welcomed to the practice. We discussed that we stress a hollistic medical approach with emphasis on lifestyle modification. Patient was informed that a healthy lifestyle with exercise and good eating habits can help reduce his risk of medical complications. He is explained that obesity increases his risk of diabetes, cardiovascular disease, or organ damage. We spent a lot of time discussing the relationship between food, exercise, sleep, mental health and obesity. Patient was counseled on the importance EATING local, organic food when possible. Patient was educated on clean 15 and dirty dozen. I provided information about reading books called The Food Rules by Otto Leon and Eat Fat Get Lean by Dr Babar Poe. Self education is important in the journey for weight management. Patient was offered diagnostic testing. We want to measure visceral adiposity, advanced body composition, adverse lipids, fatty acid balance, risk for heart disease and atherosclerosis, markers of inflammation and genetic susceptibility. Patient was counseled on weight management and was advised to lose weight using A. Meal Replacement Products Patient was educated on the replacement products called optifast. This is a good way of taking fixed amount of calories. It has been shown in studies to be ineffective weight management tool. This however has to be coupled with lifestyle intervention as well as laboratory data and EKG monitoring. It is impossible to know how a person will tolerate complete meal replacement. The side effects of meal replacement and weight loss could include syncopal attacks, dizziness, gallstones, potential cholecystectomy, possible heart attack and even . The benefits of meal replacement would be potential weight loss but no guarantees can be made. Meal replacement products are not covered by insurance. Once the patient has bought these products we cannot return them B. Lifestyle management which includes several strategies as below 1. Eat a low carbohydrate good fat good protein diet. Eliminate refined carbohydrates from the diet. Continue blood sugar and sugared beverages. Eat local organic when possible. Cook your own meals. Read food labels. None about healthy snacks. Portion control and food with low glycemic index 2. Exercise regularly. Try to get at least 6000 steps a day. Use a predominant to track activity level. Consider using apps like Daily[employer].com, Sharegatepal, lose it, stick as needed for self-monitoring and weight management. Consider group exercises. Consider hiring a personal service workers. Regular exercise is gilmore to sustainable health and prevents as a buffer against weight regain 3. Sleep is most important for healing. Tried to sleep at least 8 hours a night. A good quality sleep needs a sleep ritual with ideal room temperature of around 68. It might help to take a shower and have no electronics in the room and sleep in a very dark room without artificial light. Start her sleep routine and get up early in the morning and go to bed on time 4. Make a social connection. Surround yourself with positive people with positive energy. Connect with friends and family. 5. Get into the habit of meditating and mindfulness while doing everything. 6. Go outside and connect with nature. C. Prescription medications Patient was educated on the use of prescription medications for medical weight loss. This is a growing list and includes phentermine, Topamax,Qsymia, contrave, belviq and saxenda. All prescription medications could have side effects including but not limited to kidney stones, seizure disorder cardiac arrhythmias heart attack pancreatitis etc. etc.. Patient was encouraged to read the prescription insert and have coaching with their pharmacist and make an informed decision about taking medication and know that these medications are being prescribed with good intentions and we do not know how a patient would react to her medication. Sudden medications are FDA approved for weight loss and there is also off label use depending on patient's inability to afford medications in an attempt to lose weight D. Behavioral counseling was done to establish a relationship between food and an mood. Patient was provided information about local counseling and psychiatry and Dr Pollard at [facility]. We would like to cover regular topics and build on low glycemic eating exercise mindful eating, using yoga and meditation along with deep breathing and connecting with friends and family. E. MASS PAT reviewed, Patient's current medications were reviewed and opinion was given on medication that can cause weight gain and can be substituted F. Patient was assessed for risk with obesity including and not limiting to atherosclerosis heart disease stroke kidney disease, restrictive lung disease, irritable bowel syndrome and overall mortality. Risk of developing prediabetes diabetes and metabolic syndrome was discussed G. Therapeutic plan: We have decided to make therapeutic plan which would include choosing wisely on calories restricting portion getting active, tracking weight, getting good quality sleep and working on time management H. Patient will follow up in (4) weeks for weight management Total time spent today was 30 minutes of which greater than 50% was spent on coordinating and counseling Of note, some information is being carried forward from prior records for informational purposes only and is being cited so that efficiency, safety and quality of the patient's care is not compromised This note was prepared using voice recognition software and direct typing Please excuse inadvertent scrap hooker or typing errors, or uncorrected word substitutions Although every attempt has been made by the provider to proofread this document, occasional misspellings and typographical errors may still be present Due to the previous pandemic, and the use of personal protective equipment (PPE) This may decrease voice recognition accuracy Inadvertent scrap hooker errors may occur 01/17/2023 Vitamin D deficiency (ICD-10 - E55.9) Weight Mgt Patient doing well overall. Patient will begin Mounjaro as it is a better drug Backup plan would be compounded semaglutide until she reaches higher dosing and then a prescription will be sent for higher dose Wegovy Patient will continue to follow a health lifestyle with calorie counting. Patient will continue to maintain a healthy amount of exercise to gain muscle and lose weight. Patient's weight loss goals and body composition was discussed. States she has trialed keto diet for 3 years prior, but gained the weight back in 2020. Currently eats carb heavy diet w/ no portion controlling or calorie counting. Not exercising or counting steps due to busy schedule. Discussed GLP-1 options for her, as Phentermine not a good choice due to hx of migraines + anxiety. Pt is aware of mechnism of action + potential side effects. Metabolic workup unremarkable Discussed importance of protein consumption for muscle maintenance as well as probiotics, B12 complex biotin , iron and other nutrients, To help avoid telogen effluvium while on weight loss medications such as GLP-1 We are a board certified obesity and weight management practice Patient has trialed behavioral modification, dietary restrictions and exercise for a minimum of 3 months Patient has been found to be obese with a BMI of (31). Patient has class (1) obesity. Patient was reassured and welcomed to the practice. We discussed that we stress a hollistic medical approach with emphasis on lifestyle modification. Patient was informed that a healthy lifestyle with exercise and good eating habits can help reduce his risk of medical complications. He is explained that obesity increases his risk of diabetes, cardiovascular disease, or organ damage. We spent a lot of time discussing the relationship between food, exercise, sleep, mental health and obesity. Patient was counseled on the importance EATING local, organic food when possible. Patient was educated on clean 15 and dirty dozen. I provided information about reading books called The Food Rules by Otto Leon and Eat Fat Get Lean by Dr Babar Poe. Self education is important in the journey for weight management. Patient was offered diagnostic testing. We want to measure visceral adiposity, advanced body composition, adverse lipids, fatty acid balance, risk for heart disease and atherosclerosis, markers of inflammation and genetic susceptibility. Patient was counseled on weight management and was advised to lose weight using A. Meal Replacement Products Patient was educated on the replacement products called optifast. This is a good way of taking fixed amount of calories. It has been shown in studies to be ineffective weight management tool. This however has to be coupled with lifestyle intervention as well as laboratory data and EKG monitoring. It is impossible to know how a person will tolerate complete meal replacement. The side effects of meal replacement and weight loss could include syncopal attacks, dizziness, gallstones, potential cholecystectomy, possible heart attack and even . The benefits of meal replacement would be potential weight loss but no guarantees can be made. Meal replacement products are not covered by insurance. Once the patient has bought these products we cannot return them B. Lifestyle management which includes several strategies as below 1. Eat a low carbohydrate good fat good protein diet. Eliminate refined carbohydrates from the diet. Continue blood sugar and sugared beverages. Eat local organic when possible. Cook your own meals. Read food labels. None about healthy snacks. Portion control and food with low glycemic index 2. Exercise regularly. Try to get at least 6000 steps a day. Use a predominant to track activity level. Consider using apps like DailyObjects.com, [employer], lose it, stick as needed for self-monitoring and weight management. Consider group exercises. Consider hiring a personal service workers. Regular exercise is gilmore to sustainable health and prevents as a buffer against weight regain 3. Sleep is most important for healing. Tried to sleep at least 8 hours a night. A good quality sleep needs a sleep ritual with ideal room temperature of around 68. It might help to take a shower and have no electronics in the room and sleep in a very dark room without artificial light. Start her sleep routine and get up early in the morning and go to bed on time 4. Make a social connection. Surround yourself with positive people with positive energy. Connect with friends and family. 5. Get into the habit of meditating and mindfulness while doing everything. 6. Go outside and connect with nature. C. Prescription medications Patient was educated on the use of prescription medications for medical weight loss. This is a growing list and includes phentermine, Topamax,Qsymia, contrave, belviq and saxenda. All prescription medications could have side effects including but not limited to kidney stones, seizure disorder cardiac arrhythmias heart attack pancreatitis etc. etc.. Patient was encouraged to read the prescription insert and have coaching with their pharmacist and make an informed decision about taking medication and know that these medications are being prescribed with good intentions and we do not know how a patient would react to her medication. Sudden medications are FDA approved for weight loss and there is also off label use depending on patient's inability to afford medications in an attempt to lose weight D. Behavioral counseling was done to establish a relationship between food and an mood. Patient was provided information about local counseling and psychiatry and Dr Pollard at [facility]. We would like to cover regular topics and build on low glycemic eating exercise mindful eating, using yoga and meditation along with deep breathing and connecting with friends and family. E. MASS PAT reviewed, Patient's current medications were reviewed and opinion was given on medication that can cause weight gain and can be substituted F. Patient was assessed for risk with obesity including and not limiting to atherosclerosis heart disease stroke kidney disease, restrictive lung disease, irritable bowel syndrome and overall mortality. Risk of developing prediabetes diabetes and metabolic syndrome was discussed G. Therapeutic plan: We have decided to make therapeutic plan which would include choosing wisely on calories restricting portion getting active, tracking weight, getting good quality sleep and working on time management H. Patient will follow up in (4) weeks for weight management Total time spent today was 30 minutes of which greater than 50% was spent on coordinating and counseling Of note, some information is being carried forward from prior records for informational purposes only and is being cited so that efficiency, safety and quality of the patient's care is not compromised This note was prepared using voice recognition software and direct typing Please excuse inadvertent scrap hooker or typing errors, or uncorrected word substitutions Although every attempt has been made by the provider to proofread this document, occasional misspellings and typographical errors may still be present Due to the previous pandemic, and the use of personal protective equipment (PPE) This may decrease voice recognition accuracy Inadvertent scrap hooker errors may occur 01/17/2023 BMI 31.0-31.9,adult (ICD-10 - Z68.31) Weight Mgt Patient doing well overall. Patient will begin Mounjaro as it is a better drug Backup plan would be compounded semaglutide until she reaches higher dosing and then a prescription will be sent for higher dose Wegovy Patient will continue to follow a health lifestyle with calorie counting. Patient will continue to maintain a healthy amount of exercise to gain muscle and lose weight. Patient's weight loss goals and body composition was discussed. States she has trialed keto diet for 3 years prior, but gained the weight back in 2020. Currently eats carb heavy diet w/ no portion controlling or calorie counting. Not exercising or counting steps due to busy schedule. Discussed GLP-1 options for her, as Phentermine not a good choice due to hx of migraines + anxiety. Pt is aware of mechnism of action + potential side effects. Metabolic workup unremarkable Discussed importance of protein consumption for muscle maintenance as well as probiotics, B12 complex biotin , iron and other nutrients, To help avoid telogen effluvium while on weight loss medications such as GLP-1 We are a board certified obesity and weight management practice Patient has trialed behavioral modification, dietary restrictions and exercise for a minimum of 3 months Patient has been found to be obese with a BMI of (31). Patient has class (1) obesity. Patient was reassured and welcomed to the practice. We discussed that we stress a hollistic medical approach with emphasis on lifestyle modification. Patient was informed that a healthy lifestyle with exercise and good eating habits can help reduce his risk of medical complications. He is explained that obesity increases his risk of diabetes, cardiovascular disease, or organ damage. We spent a lot of time discussing the relationship between food, exercise, sleep, mental health and obesity. Patient was counseled on the importance EATING local, organic food when possible. Patient was educated on clean 15 and dirty dozen. I provided information about reading books called The Food Rules by Otto Leon and Eat Fat Get Lean by Dr Babar Poe. Self education is important in the journey for weight management. Patient was offered diagnostic testing. We want to measure visceral adiposity, advanced body composition, adverse lipids, fatty acid balance, risk for heart disease and atherosclerosis, markers of inflammation and genetic susceptibility. Patient was counseled on weight management and was advised to lose weight using A. Meal Replacement Products Patient was educated on the replacement products called optifast. This is a good way of taking fixed amount of calories. It has been shown in studies to be ineffective weight management tool. This however has to be coupled with lifestyle intervention as well as laboratory data and EKG monitoring. It is impossible to know how a person will tolerate complete meal replacement. The side effects of meal replacement and weight loss could include syncopal attacks, dizziness, gallstones, potential cholecystectomy, possible heart attack and even . The benefits of meal replacement would be potential weight loss but no guarantees can be made. Meal replacement products are not covered by insurance. Once the patient has bought these products we cannot return them B. Lifestyle management which includes several strategies as below 1. Eat a low carbohydrate good fat good protein diet. Eliminate refined carbohydrates from the diet. Continue blood sugar and sugared beverages. Eat local organic when possible. Cook your own meals. Read food labels. None about healthy snacks. Portion control and food with low glycemic index 2. Exercise regularly. Try to get at least 6000 steps a day. Use a predominant to track activity level. Consider using apps like DailyObjects.com, [employer], lose it, stick as needed for self-monitoring and weight management. Consider group exercises. Consider hiring a personal service workers. Regular exercise is gilmore to sustainable health and prevents as a buffer against weight regain 3. Sleep is most important for healing. Tried to sleep at least 8 hours a night. A good quality sleep needs a sleep ritual with ideal room temperature of around 68. It might help to take a shower and have no electronics in the room and sleep in a very dark room without artificial light. Start her sleep routine and get up early in the morning and go to bed on time 4. Make a social connection. Surround yourself with positive people with positive energy. Connect with friends and family. 5. Get into the habit of meditating and mindfulness while doing everything. 6. Go outside and connect with nature. C. Prescription medications Patient was educated on the use of prescription medications for medical weight loss. This is a growing list and includes phentermine, Topamax,Qsymia, contrave, belviq and saxenda. All prescription medications could have side effects including but not limited to kidney stones, seizure disorder cardiac arrhythmias heart attack pancreatitis etc. etc.. Patient was encouraged to read the prescription insert and have coaching with their pharmacist and make an informed decision about taking medication and know that these medications are being prescribed with good intentions and we do not know how a patient would react to her medication. Sudden medications are FDA approved for weight loss and there is also off label use depending on patient's inability to afford medications in an attempt to lose weight D. Behavioral counseling was done to establish a relationship between food and an mood. Patient was provided information about local counseling and psychiatry and Dr Pollard at [facility]. We would like to cover regular topics and build on low glycemic eating exercise mindful eating, using yoga and meditation along with deep breathing and connecting with friends and family. E. MASS PAT reviewed, Patient's current medications were reviewed and opinion was given on medication that can cause weight gain and can be substituted F. Patient was assessed for risk with obesity including and not limiting to atherosclerosis heart disease stroke kidney disease, restrictive lung disease, irritable bowel syndrome and overall mortality. Risk of developing prediabetes diabetes and metabolic syndrome was discussed G. Therapeutic plan: We have decided to make therapeutic plan which would include choosing wisely on calories restricting portion getting active, tracking weight, getting good quality sleep and working on time management H. Patient will follow up in (4) weeks for weight management Total time spent today was 30 minutes of which greater than 50% was spent on coordinating and counseling Of note, some information is being carried forward from prior records for informational purposes only and is being cited so that efficiency, safety and quality of the patient's care is not compromised This note was prepared using voice recognition software and direct typing Please excuse inadvertent scrap hooker or typing errors, or uncorrected word substitutions Although every attempt has been made by the provider to proofread this document, occasional misspellings and typographical errors may still be present Due to the previous pandemic, and the use of personal protective equipment (PPE) This may decrease voice recognition accuracy Inadvertent scrap hooker errors may occur PLAN OF TREATMENT No Information Progress Notes * KRISTEN GIANGDOB:1990 (34 yo F)Acc No.[id number]:01/17/2023 Patient:??KRISTEN GIANG Provider:??ANJELICA IRBY NP :1990?Age:32 Y?Sex:Fe male Date:01/17/2023 Address:[address] [place], [place] [id number] Subjective: * Chief Complaints: * ? * HPI: ?Constitutional:? Patient is here today for a weight management f/u visit ?Patient seen and examined. ? Full past medical history, social history, family history, ?allergies and current medications were reviewed and updated. ?Body composition analysis reviewed today, as expected increased BMI, ?visceral adiposity, fat mass index, waist cirumference ?Good skeletal mass composition, Good water composition ?Caloric energy expenditure discussed ?Weight Management: ?Patient had finished 0.25 starter pack of wegovy ?Prior Auth was not accepted for 0.5 until recently ?07/25 stopped the .5 Wegovy due to COVID-19. Has not taken since. ?Pt here to reestablish prescription and continue weight management. ?Injection day: Will inject Sunday ?- concerned about medication interactions, worried about interactions with ?potential steroids and asthma exacerbations on Wegovy or other GLP/GIP ?Discussed importance of protein consumption for muscle maintenance ? 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 ?Diet: carb heavy, no portion controlling, nor calorie counting ?Exercise: not counting steps, no exercise at all ?Non-smoker. ?ETOH use: socially. * ROS:?All Other Systems:?Review of Systems (ROS)??All others negative except those mentioned in HPI.? * Medical History:?? Objective: * Examination: ?General Examination: ?GENERAL APPEARANCE:??in no acute distress, well developed, well nourished.??HEAD:??normocephalic, atraumatic.??EYES:??pupils equal, round, reactive to light and accommodation.??EARS:??normal.??ORAL CAVITY:??mucosa moist.??THROAT:??clear.??NECK/THYROID:??neck supple, full range of motion, no cervical lymphadenopathy.??SKIN:??no suspicious lesions, warm and dry.??HEART:??no murmurs, regular rate and rhythm, S1, S2 normal.??LUNGS:??clear to auscultation bilaterally.??ABDOMEN:??normal, bowel sounds present, soft, nontender, nondistended.??EXTREMITIES:??no clubbing, cyanosis, or edema.??NEUROLOGIC:??nonfocal, motor strength normal upper and lower extremities, sensory exam intact.? 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 Weight Mgt Patient doing well overall. Patient will begin Mounjaro as it is a better drug Backup plan would be compounded semaglutide until she reaches higher dosing and then a prescription will be sent for higher dose Wegovy Patient will continue to follow a health lifestyle with calorie counting. Patient will continue to maintain a healthy amount of exercise to gain muscle and lose weight. Patient's weight loss goals and body composition was discussed. States she has trialed keto diet for 3 years prior, but gained the weight back in 2020. Currently eats carb heavy diet w/ no portion controlling or calorie counting. Not exercising or counting steps due to busy schedule. Discussed GLP-1 options for her, as Phentermine not a good choice due to hx of migraines + anxiety. Pt is aware of mechnism of action + potential side effects. Metabolic workup unremarkable Discussed importance of protein consumption for muscle maintenance as well as probiotics, B12 complex biotin , iron and other nutrients, To help avoid telogen effluvium while on weight loss medications such as GLP-1 We are a board certified obesity and weight management practice Patient has trialed behavioral modification, dietary restrictions and exercise for a minimum of 3 months Patient has been found to be obese with a BMI of (31). Patient has class (1) obesity. Patient was reassured and welcomed to the practice. We discussed that we stress a hollistic medical approach with emphasis on lifestyle modification. Patient was informed that a healthy lifestyle with exercise and good eating habits can help reduce his risk of medical complications. He is explained that obesity increases his risk of diabetes, cardiovascular disease, or organ damage. We spent a lot of time discussing the relationship between food, exercise, sleep, mental health and obesity. Patient was counseled on the importance EATING local, organic food when possible. Patient was educated on clean 15 and dirty dozen. I provided information about reading books called The Food Rules by Otto Leon and Eat Fat Get Lean by Dr Babar Poe. Self education is important in the journey for weight management. Patient was offered diagnostic testing. We want to measure visceral adiposity, advanced body composition, adverse lipids, fatty acid balance, risk for heart disease and atherosclerosis, markers of inflammation and genetic susceptibility. Patient was counseled on weight management and was advised to lose weight using A. Meal Replacement Products Patient was educated on the replacement products called optifast. This is a good way of taking fixed amount of calories. It has been shown in studies to be ineffective weight management tool. This however has to be coupled with lifestyle intervention as well as laboratory data and EKG monitoring. It is impossible to know how a person will tolerate complete meal replacement. The side effects of meal replacement and weight loss could include syncopal attacks, dizziness, gallstones, potential cholecystectomy, possible heart attack and even . The benefits of meal replacement would be potential weight loss but no guarantees can be made. Meal replacement products are not covered by insurance. Once the patient has bought these products we cannot return them B. Lifestyle management which includes several strategies as below 1. Eat a low carbohydrate good fat good protein diet. Eliminate refined carbohydrates from the diet. Continue blood sugar and sugared beverages. Eat local organic when possible. Cook your own meals. Read food labels. None about healthy snacks. Portion control and food with low glycemic index 2. Exercise regularly. Try to get at least 6000 steps a day. Use a predominant to track activity level. Consider using apps like DailyObjects.com, [employer]. [employer]pal, lose it, stick as needed for self-monitoring and weight management. Consider group exercises. Consider hiring a personal service workers. Regular exercise is gilmore to sustainable health and prevents as a buffer against weight regain 3. Sleep is most important for healing. Tried to sleep at least 8 hours a night. A good quality sleep needs a sleep ritual with ideal room temperature of around 68. It might help to take a shower and have no electronics in the room and sleep in a very dark room without artificial light. Start her sleep routine and get up early in the morning and go to bed on time 4. Make a social connection. Surround yourself with positive people with positive energy. Connect with friends and family. 5. Get into the habit of meditating and mindfulness while doing everything. 6. Go outside and connect with nature. C. Prescription medications Patient was educated on the use of prescription medications for medical weight loss. This is a growing list and includes phentermine, Topamax,Qsymia, contrave, belviq and saxenda. All prescription medications could have side effects including but not limited to kidney stones, seizure disorder cardiac arrhythmias heart attack pancreatitis etc. etc.. Patient was encouraged to read the prescription insert and have coaching with their pharmacist and make an informed decision about taking medication and know that these medications are being prescribed with good intentions and we do not know how a patient would react to her medication. Sudden medications are FDA approved for weight loss and there is also off label use depending on patient's inability to afford medications in an attempt to lose weight D. Behavioral counseling was done to establish a relationship between food and an mood. Patient was provided information about local counseling and psychiatry and Dr Pollard at [facility]. We would like to cover regular topics and build on low glycemic eating exercise mindful eating, using yoga and meditation along with deep breathing and connecting with friends and family. E. MASS PAT reviewed, Patient's current medications were reviewed and opinion was given on medication that can cause weight gain and can be substituted F. Patient was assessed for risk with obesity including and not limiting to atherosclerosis heart disease stroke kidney disease, restrictive lung disease, irritable bowel syndrome and overall mortality. Risk of developing prediabetes diabetes and metabolic syndrome was discussed G. Therapeutic plan: We have decided to make therapeutic plan which would include choosing wisely on calories restricting portion getting active, tracking weight, getting good quality sleep and working on time management H. Patient will follow up in (4) weeks for weight management Total time spent today was 30 minutes of which greater than 50% was spent on coordinating and counseling Of note, some information is being carried forward from prior records for informational purposes only and is being cited so that efficiency, safety and quality of the patient's care is not compromised This note was prepared using voice recognition software and direct typing Please excuse inadvertent scrap hooker or typing errors, or uncorrected word substitutions Although every attempt has been made by the provider to proofread this document, occasional misspellings and typographical errors may still be present Due to the previous pandemic, and the use of personal protective equipment (PPE) This may decrease voice recognition accuracy Inadvertent scrap hooker errors may occur. Plan: * Treatment: * Images: Billing Information: * Visit Code:?? * Procedure Codes:?? * Sign off status: Pending * Provider:??ANJELICA IRBY NP Date:??01/03 History and Physical Notes * HPI (History of Present Illness) Category Sub-Category Detail Notes Category Not es Constitutional Patient is here today for a weight management f/u visit Patient seen and examined. Full past medical history, social history, family history, allergies and current medications were reviewed and updated. Body composition analysis reviewed today, as expected increased BMI, visceral adiposity, fat mass index, waist cirumference Good skeletal mass composition, Good water composition Caloric energy expenditure discussed Weight Management: Patient had finished 0.25 starter pack of wegovy Prior Auth was not accepted for 0.5 until recently 07/25 stopped the .5 Wegovy due to COVID-19. Has not taken since. Pt here to reestablish prescription and continue weight management. 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 Diet: carb heavy, no portion controlling, nor calorie counting Exercise: not counting steps, no exercise at all Non-smoker. ETOH use: socially Examination Category Sub-Category Detail Notes Category Not es General Examination GENERAL APPEARANCE: in no ac [place] distress, well developed, well nourished HEAD: normocephalic, atrau matic EYES: pupils equal, round, reactive to light and accommodation EARS: normal THROAT: clear NECK/THYROID: neck supple, full ra nge of motion, no cervical lymphadenopathy HEART: no murmurs, regular rate and rhythm, S1, S2 normal LUNGS: clear to auscultatio n bilaterally ABDOMEN: normal, bowel sounds present, soft, nontender, nondistended NEUROLOGIC: nonfocal, motor stre ngth normal upper and lower extremities, sensory exam intact SKIN: no suspicious lesion s, warm and dry EXTREMITIES: no clubbing, cyanosi s, or edema ORAL CAVITY: mucosa moist
--- OUTSIDE RECORDS SUMMARY | 2024-06-19 18:03 | XMS_ITS | Clinical Summary ---
Author Organization [facility] Address [address] [place] [address] Care Team Providers Care Price Economist Name Role Phone Malina Gale Primary Care Provider [phone] Social History Tobacco Use Types Packs/Day Years Used Date Smoking Tobacco: Never Assessed Sex and Gender Information Value Date Recorded Sex Assigned at Not on file Gender Identity Not on file Sexual Orientation Not on file Plan of Treatment Health Maintenance Due Date Last Done Comments Hepatitis B Vaccines (1 of 3 - 3-dose series) 1989 Hepatitis C Screening 1989 COVID-19 Vaccine (#1) 1989 Depression Screening 2001 Preventative Health Evaluation 2007 Cervical Cancer Screening (Pap Smear) 2010 DTap / Tdap / Td (8 - Td or Tdap) 09/10/2022 09/10/2012, 11/04/2008, 11/08/1994, Additional history exists Influenza Vaccine (#1) 2023 7, 12/10/2012, 12/23/2009, Additional history exists Pneumococcal Vaccine Aged Out No long er eligible based on patient's age to complete this topic RSV Ped < 20 months Aged Out No longe r eligible based on patient's age to complete this topic Care Teams Price Economist Relationship Specialty Start Date End Date [facility] [address] [place] [phone] PCP - General Internal Medicine 10/14/19
--- OUTSIDE RECORDS SUMMARY | 2024-06-19 18:04 | XMS_ITS ---
Author Organization [facility] Address [address] [place] [address] Care Team Providers Care Cleaning Professional Name Role Phone ANJELICA IRBY Unavailable [phone] REASON FOR VISIT Wegovy Encounters Encounter Location Date Provider Diagnosis [address] [place] [id number] 12/20/2022 ANJELICA IRBY PLAN OF TREATMENT No Information Progress Notes * KRISTEN GIANGDOB:1990 (32 yo F)Acc No.[id number]:12/20/2022 Patient:??KRISTEN GIANG :1990?Age:32 Y?Sex:Fe male Address:[address] [place] [id number] * true * Date:??
--- OUTSIDE RECORDS SUMMARY | 2024-06-19 18:04 | XMS_ITS | Patient Health Record ---
Author Organization [facility] Address [address] [place] [address] Care Team Providers Care Die Mechanic Name Role Phone ANJELICA IRBY Unavailable [phone] ALLERGIES No Known Allergies REASON FOR REFERRAL No Information MEDICATIONS Medication SIG (Take, Route, Frequency, Duration) Notes Start Date End Date Status Mounjaro 2.5 MG/0.5ML 2.5mg Subcutaneous weekly for 30 days 11/30/2022 Active SUMAtriptan Succinate 100 MG Oral for 30 Active Albuterol Sulfate HFA 108 (90 Base) MCG/ACT INHALE 2 PUFFS INTO THE LUNGS EVERY 4 HOURS NEEDED FOR COUGH, WHEEZING OR SHORTNESS OF BREATH. Inhalation for 17 Active Amitriptyline HCl 10 MG Oral for 90 Active Fioricet 50-300-40 MG 1 capsule as neede d Orally every 4 hrs 04/25/2022 Active Magnesium Oxide 400 (240 Mg) MG Oral for 30 Active SOCIAL HISTORY Tobacco Use: Social History Observation Description Date Details (start date - stop date) Never Smoker NA - NA Sex Assigned At : Social History Observation Description Sex Assigned At Unknown Tobacco Use/Smoking Question Answer Notes Are you a nonsmoker Alcohol Screen (Audit-C) Question Answer Notes Did you have a drink containing alcohol in the p ast year? No Points 0 Interpretation Negative PROBLEMS Problem Type ICD Code Onset Dates Problem Status W/U Status Risk SNOMED Code Notes Problem Other obesity due to excess calories (E66.09) Active confirmed 387708929 Problem Vitamin D deficiency (E55.9) Active confirmed Vitamin D deficiency (29744221) Problem Body mass index [BMI] 33.0-33.9, adult (Z68.33) Active confirmed 140306835 Problem Migraine with aura and without status migrainosus, not intractable (G43.109) Active confirmed 3812438 Problem BMI 31.0-31.9,adult (Z68.31) Active confirmed 568373663 Problem Chiari I malformation (G93.5) Active confirmed 871333963 PLAN OF TREATMENT Pending Test Test Name Order Date 25OH VITAMIN D 04/25/2022 CBC (COMPLETE BLOOD COUNT) WITH DIFF COMPREHENSIVE METABOLIC PANEL 04/25/2022 HEMOGLOBIN A1C 04/25/2022 LIPID PANEL 04/25/2022 TSH WITH REFLEX TO FT4 04/25/2022 URINALYSIS W/REFLEX CULTURE 04/25/2022 Insurance Providers Payer Name Payer Address Payer Phone Subscriber Number Group Number Insured Name Patient Relationship to Insured Coverage Start Date Coverage End Date [facility] [address] [place] [address] [id number] KRISTEN GIANG Self - patient is the insured MEDICAL (GENERAL) HISTORY Medical History History ICD Code asthma headache anxiety depression seasonal allergies Surgical History Surgery Date(Month/Year) brain surgery 11/22/2019 Hospitalization History Reason Date(Month/Year) Chiari Malformation 1
== END 2024-06-19 16:14 | disposition home or self-care (01) ==
LOC: HO.HSMS 15:23
PROVIDERS: PCP Emergency Medicine Emergency Medical Services; Visit Provider Nurse Practitioner Family
DX: G43.109 Migraine with aura, not intractable, without status migrainosus (principal); G43.829 Menstrual migraine, not intractable, without status migrainosus; G44.85 Primary stabbing headache
CPT/HCPCS: 99214